=== PATIENT | female | born 1940 | race Caucasian/White ===

== ENCOUNTER 2022-04-22 22:09 | Emergency (ER) | payer MEDICARE ==
[~2022-04-22] VITALS: Ht 160 cm; Wt 52.2 kg
--- NOTE | 2022-04-22 22:10 | NUR ---
FREDDIE TOVAR FROM [facility] ON [facility] FOR WITNESSED FALL. PATIENT IS AAOX2. CANNOT RECALL WHAT HAPPENED TO HER. NOT IN ANY PAIN. PATIENT IS PLACED COMFORTABLY IN BED. ATTACHED TO MONITOR. VITALS CHECKED.
--- NOTE | 2022-04-22 22:15 | NUR ---
SEEN BY DR WHITESIDE AT BEDSIDE.
--- NOTE | 2022-04-22 23:47 | NUR ---
[facility] CALLED FOR BLS GOING BACK TO SNF PER TOMI ETA - 90 MIN
--- NOTE | 2022-04-23 00:10 | NUR ---
REPORT GIVEN TO NURSE G[facility]
--- NOTE | 2022-04-23 01:00 | NUR ---
Patient discharged to home in stable condition. Written and verbal after care instructions given. Patient verbalizes understanding of instruction.
--- NOTE | 2022-04-23 01:03 | NUR ---
REPORT GIVEN TO BRANDT GORE OF [facility] UN[id number]
[2022-04-23 01:44] VITALS: BP 118/79
== END 2022-04-23 01:45 ==
LOC: ER 22:24
DX: S09.90XA Unspecified injury of head, initial encounter (principal); S39.012A Strain of muscle, fascia and tendon of lower back, initial encounter; R51.9 Headache, unspecified; I10 Essential (primary) hypertension; Z88.8 Allergy status to other drugs, medicaments and biological substances; W18.30XA Fall on same level, unspecified, initial encounter; Y93.89 Activity, other specified; Y92.89 Other specified places as the place of occurrence of the external cause; Y99.8 Other external cause status
CPT/HCPCS: 70450-TC; 72131-TC